=== PATIENT | male | born 1990 | race Caucasian/White ===

== ENCOUNTER 2025-02-28 09:43 | Emergency (ER) | payer BC, SELFPAY ==
--- NOTE | 2025-02-28 09:46 | ED_ITS ---
HPI - Dental/Oral General Chief complaint: Dental/Oral Stated complaint: tooth ache Time Seen by Provider: 02/28/25 10:14 Source: patient, RN notes reviewed and old records reviewed Mode of arrival: ambulatory Limitations: no limitations History of Present Illness HPI Narrative: 34-year-old male presents to the [facility] with complaints of pain and swelling for 2 days to the right upper molar, outer aspect. Face is swollen without erythema. Has taken ibuprofen. States that he does have a dentist, will call in the morning. Onset (ago): day(s) (2) Treatment prior to arrival: other (Ibuprofen) Related Data Home Medications ?Medication ?Instructions ?Recorded ?Confirmed ?Last Taken ?Type bupropion HCl 150 mg 24 hr tablet, 150 mg PO DAILY 08/1109/16/24 Unknown History extended release Held on 12/14/24. Instructions: Patient no longer taking apple cider vinegar 300 mg tablet mg PO 12/14/24 Unkn own History creatine monohydrate ea PO 12/14/24 Unknown Hist ory magnesium 250 mg tablet 250 mg PO DAILY 12/14/24 Un known History multivitamin 1 tablet PO DAILY 12/14/24 Unknown History omega-3 fatty acids 1,000 mg 1,000 mg PO DAILY 5 Unknown History capsule Allergies Allergy/AdvReac Type Severity Reaction Status Date / Time No Known Allergies Allergy Unverified 12/14/24 08:40 Review of Systems 2 Review of Systems: All systems reviewed & are unremarkable except as noted in HPI and below Constitutional: Constitutional: Reports no additional constitutional complaints ENT: Reports as per HPI Cardiovascular: Cardiovascular: Reports no additional cardiovascular complaints, Denies chest pain and Denies dyspnea Respiratory: Respiratory: Reports no additional respiratory complaints, Denies chest congestion, Denies cough and Denies dyspnea Musculoskeletal: Musculoskeletal: Reports no additional musculoskeletal complaints Integumentary/Breasts: Skin/Breast: Reports system reviewed and no additional complaints, except as docu PMFSH Past Medical History Medical History Thyroid disorder screen Establishing care with new doctor, 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 Family History Family History Father Alcohol abuse Mother Alcohol abuse Social History Social History Social History: Smoking status: Never smoker Second hand tobacco smoke exposure: No Alcohol intake: current Alcohol use details: Occasionally Substance use: never Substance use type: does not use Do You Feel Safe in your Home?: Yes Lack of Transportation: No Lack of Food: Never True Current Housing: I Have Housing Concerned About Future Housing: No Difficulty Paying Gas/Electric Bills: No Difficulty Paying for Meds: No Currently Unemployed: No Education: High School Diploma/GED Difficulty w/ Childcare or Family Care: No Living arrangements: with family Occupation/Education: occupation 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 There is no relevant family history pertinent to the patient complaint. Exam 2 Const: General: cooperative, healthy appearing, comfortable, no acute distress, well developed, alert and well nourished Nutritional Appearance: w ell nourished Orientation/consciousness: patient oriented x3 Limitations: no limitations HENMT: Head: normal to inspection Ears: hearing grossly normal bilaterally, external ears normal and TM's normal bilaterally Mouth: Yes lip normal and Yes tongue normal Teeth and gingiva: abnormal tooth and associated gingiva upper right tender and with associated gingival edema; without associated gingival fluctuance and fair dentition Teeth image: 1. Swelling noted with mild erythema. Throat: posterior oropharynx normal, uvula midline and no uvular edema Eyes: General: appearance normal, both eyes and all related structures A lignment and Position: alignment normal Neck: Neck: normal visual inspection, full ROM, no lymphadenopathy and no meningeal signs Chest: Chest palpation & inspection: normal inspection of the chest Resp: Effort & Inspection: normal respiratory effort and able to speak in complete sentences Auscultation: clear to auscultation bilaterally, no crackles, no rales, no rhonchi and no wheezes Cardio: Rate: regular rate Skin: General skin exam: normal color and no rashes or lesions noted Neuro: General: patient oriented x3, gait normal, moves all extremities and no meningeal signs Cognition (Neuro): normal cognition Speech: normal speech Gait exam (Neuro): Normal gait present Extrem: General: normal to inspection, full ROM, capillary refill normal and normal gait Psych: Appearance: grossly normal and well kempt Mental Status: mental status grossly normal Speech and movement: Normal speech and movement present and Clear speech present Affect: normal affect Attitude: cooperative Course Course Level of Care: Express Care Visit Vital Signs Vital signs: Vital Signs Temperature 97.2 F L 02/28/25 09:58 Pulse Rate 51 L 02/28/25 09:58 Respiratory Rate 16 02/28/25 09:58 Blood Pressure 120/75 02/28/25 09:58 Pulse Oximetry 99 02/28/25 09:58 Temperature 97.2 F L 02/28/25 09:58 Pulse Rate 51 L 02/28/25 09:58 Respiratory Rate 16 02/28/25 09:58 Blood Pressure 120/75 02/28/25 09:58 Pulse Oximetry 99 02/28/25 09:58 Reviewed MDM - Dental/Oral MDM Narrative Medical decision making narrative: Patient sitting in exam room. She is it is nontoxic, vitals are stable. Patient presents with right upper dental pain for 2 days. States that he does have a dentist, will follow-up. Discussed [id number] treatments, prescribing penicillin for probable infection Patient is appropriate for outpatient treatment with close follow-up Discharge instructions reviewed with patient, as well as provided in writing per nursing staff. The instructions also include specific and strict return/GO TO THE ER as well as f/u information. All questions have been answered, and the patient deny any further questions with discharge and discharge plan. Some parts of this dictation were generated by voice recognition software and may contain typographical and/or grammatical inaccuracies. Differential Diagnosis Differential diagnosis: Likely gingival abscess, dental caries, toothache, dental abscess and fracture of tooth Critical Care Time Critical Care Time Critical Care Time: No Discharge Plan Discharge Clinical Impression: Toothache, Dental infection Patient Disposition: Home Condition: Stable Instructions: Antibiotic Form, Dental Abscess (ED) Additional Instructions: Finish the entire course of antibiotics [place] teeth 2 to 3 times a day and use a good mouthwash. After every time you eat be sure to use salt water rinses. Apply ice to face to help with pain. Take Tylenol 650mg alternating with [id number] as needed for pain. You can alternate every 4 hours You need to follow-up with a dental provider as soon as possible for further evaluation and treatment. Follow up with a Primary Care Provider (PCP) about medical needs. A PCP can help keep you healthy by preventive medicine and screening. Go to the ER for New or worsening symptoms. Patient Language: Urdu Prescriptions: New penicillin V potassium 500 mg tablet 500 mg PO QID 7 Days Qty: 28 0RF No Action bupropion HCl 150 mg tablet extended release 24 hr 150 mg PO DAILY multivitamin Tablet 1 tablet PO DAILY magnesium 250 mg tablet 250 mg PO DAILY omega-3 fatty acids 1,000 mg capsule 1,000 mg PO DAILY apple cider vinegar 300 mg tablet PO creatine monohydrate Powder PO trazodone 50 mg tablet 100 mg PO QHS PRN (Reason: insomnia) Qty: 180 1RF lisdexamfetamine [Vyvanse] 50 mg capsule 50 mg PO DAILY Qty: 30 0RF Follow-up/Referrals: Jeovany Hicks MD [Primary Care Provider, Family Practice] Stand Alone Forms: Work/School Release IP Time of Disposition: 10:21
[2025-02-28 09:58] VITALS: BP 120/75; PULSE 51; RESP 16; TEMP 36.2; O2SAT 99
== END 2025-02-28 10:27 | disposition home or self-care (01) ==
PROVIDERS: Emergency Provider Nurse Practitioner; PCP Family Medicine
DX: K04.7 Periapical abscess without sinus (principal)
CPT/HCPCS: 99213; G0463